=== PATIENT | female | born 1935 | race Caucasian/White ===

== ENCOUNTER 2018-06-16 07:31 | Day surgery (SDC) | payer MEDICARE, BC, OTHER, SELFPAY ==
[2018-06-16] VITALS (7 sets, daily range): BP systolic 104–164; BP diastolic 37–83; PULSE 61–78; RESP 12–17; TEMP 36.2–36.4; O2SAT 94–96; BMI 37.4
--- NOTE | 2018-06-16 | PATH_ITS ---
[facility] Accession Number: [id number] . 01 Material submitted: . POLYP AT 10 CM . 02 Diagnosis: Colon at 10 cm, Polyp: Tubulovillous adenoma, fragmented. Negative for high-grade dysplasia or malignancy. MRV/06/19/2018 . 02 Electronically signed: . Denys Pitts MD, PhD, Pathologist NPI- [id number] . 01 Gross description: . POLYP AT 10 CM: Received in formalin are multiple fragment(s) of pollock, soft tissue measuring 2.0 x 1.3 x 0.5 cm in aggregate submitted entirely in 1 cassette(s) /CKI /CKI . 02 Pathologist provided ICD-10: D12.6 . 02 CPT . 887428 Performed at: 01 [facility] [address] [id number] MD Gustavo Fuentes MD Phone: [phone] Performed at: 02 [facility] [address] [place], [place] [id number] MD Shannon Roberts MD Phone: [phone]
--- NOTE | 2018-06-16 09:24 | PM.PREOP ---
Pre-operative Note Interval Note History & Physical reviewed/Exam performed by Physician: Yes Changes to H&P: No ASA Class (for procedural sedation): II
[2018-06-16] MEDS: METOPROLOL TARTRATE 5 MG/5 ML INJ IV (09:40)
[2018-06-16] MEDS: MIDAZOLAM 5 MG/5 ML VIAL IV (10:06)
[2018-06-16] MEDS: fentaNYL 250 MCG/5 ML INJ IV (10:07)
--- NOTE | 2018-06-16 10:32 | P.OP.ENDO_ITS ---
Operative Date/Time/Diagnoses Date of procedure: 06/16/18 Time of procedure: 10:25 Post-op diagnosis: same (Lesions in the rectum and just inside the anus most likely source of bleeding. Extensive sigmoid diverticulosis with strictures most likely from prior diverticulitis. No active inflammation at this time.) Procedure & Clinicians Study performed: Colonoscopy with hot snare polypectomy Same procedure as scheduled: Yes Indications: Rectal bleeding Surgeon: Haresh Salvador Procedure Notes SCOAP/Timeout: Performed Procedure in detail: The patient was placed in the left lateral decubitus position and underwent IV sedation directed by the surgeon consisting of fentanyl and Versed. Digital exam was unremarkable. The scope was inserted and advanced through the rectum into the sigmoid where I encountered extensive sigmoid diverticulosis with tortuosity and stricture. There did not appear to be any active inflammation. We continued on into the descending, transverse, and ascending colon. Occasional diverticulosis was seen.. The cecum was reached identified by the ileocecal valve . I did not see the entire cecum but saw about half of it. Given the patient's recent colonoscopy that is probably adequate. I simply could not ge further even that we repositioned the patient, added a stiffener, applied pressure. The scope was gradually brought out. Polyps were found at in the rectum at 10 cm and right inside the verge. These w ere soft fleshy masses which I snared. They appear to be completely removed.. The scope was removed and the patient tolerated the procedure well. Scope withdrawal time: 14 min Sedation minutes: 47 Findings: diverticulosis, polyp (Distal rectum and near anal verge.), stricture (Sigmoid) and other findings Specimen(s): other (Polyps) Complications: none Recommendations: Other recommendation (Flexible sigmoidoscopy in 6 months to ensure no return of growth of these lesions.) Follow up: months (Six) Disposition: PACU
== END 2018-06-16 11:13 | disposition home or self-care (01) ==
PROVIDERS: Family Provider Internal Medicine; PCP Internal Medicine; Visit Provider Specialist
PROC: 0DJD8ZZ Inspection of Lower Intestinal Tract, Via Natural or Artificial Opening Endoscopic (ICD-10-PCS; CPT 45378; principal; 2018-06-16 08:45)
DX: K62.5 Hemorrhage of anus and rectum (principal); R01.1 Cardiac murmur, unspecified; N18.9 Chronic kidney disease, unspecified; K57.30 Diverticulosis of large intestine without perforation or abscess without bleeding; D12.6 Benign neoplasm of colon, unspecified
CPT/HCPCS: 45385; 88305; 99152; 99153; J2250; J3010

== ENCOUNTER 2018-11-10 09:23 | Day surgery (SDC) | payer MEDICARE, BC, OTHER, SELFPAY ==
[2018-11-10 09:56] VITALS: BP 174/81; PULSE 78; RESP 16; TEMP 36.6; O2SAT 94; BMI 37.7
--- NOTE | 2018-11-10 10:07 | PM.HP.1 ---
History of Present Illness Date Patient Seen: 11/10/18 Time Patient Seen: 10:08 Chief complaint: [id number] Narrative: The patient is a woman with a rather large polyp that I removed inside the rectum. She is here for a follow-up flexible sigmoidoscopy in order to make sure that it is not grown back and that the lesion was completely removed. Patient History Medical History (Updated 11/10/18 @ 10:08 by Haresh Salvador MD) History of colon polyps (Resolved) Arthritis (Chronic) Gout (Chronic) Heart murmur (Chronic) Renal insufficiency (Chronic) Failed total left knee replacement (Resolved) Surgical History History of left knee replacement (Resolved) Hx of tonsillectomy (Resolved) Status post appendectomy (Resolved) Status post exploratory laparotomy (Resolved) Family History Son Cancer Mother Hypertension Father Hypertension Social History household members: spouse Family & Social History Family History Son Cancer Mother Hypertension Father Hypertension Social History: household members spouse Meds Home Medications Medication Instructions Recorded Confirmed Type ASPIRIN (#ASPIRIN E.C.) 81 mg PO QDAY #0 03/17/11 06/16/18 History fluticasone propionate 1 spray INTRANASAL QDAY #0 03/17/11 06/16/18 History Align 4 mg PO QDAY #0 10/20/12 06/16/18 History acetaminophen 500 mg capsule 500 mg PO Q6H PRN 06/09/18 06/16/18 History atenolol 100 mg tablet 100 mg PO DAILY 06/09/18 06/16/18 History cartilage 40 mg-collagen II-boron tab PO tab 06/09/18 06/09/18 History 5 mg-hyaluronate sod 3.3 mg tablet loratadine 10 mg tablet 10 mg PO DAILY 06/09/18 06/16/18 History omeprazole 20 mg capsule,delayed 20 mg PO DAILY 06/09/18 06/16/18 History release simvastatin 40 mg tablet 40 mg PO BEDTIME 06/09/18 06/16/18 History Allergies Allergy/AdvReac Type Severity Reaction Status Date / Time Sulfa (Sulfonamide Allergy Severe HIVES, Verified 11/10/18 09:52 Antibiotics) BREATHING [SULFA (SULFONAMIDE PROBLEMS ANTIBIOTICS)] allopurinol Allergy Unknown Verified 11/10/18 09:52 codeine [CODEINE] AdvReac Intermediate GENERAL Verified 11/10/18 09:52 MALAISE Review of Systems Review of Systems No breathing problems chest pain heart problems black or bloody bowel movements. Exam Narrative Exam Narrative: Pleasant cooperative patient no apparent distress. Lungs are clear to auscultation. No rales or rhonchi. Heart regular rate and rhythm no murmur gallop. Abdomen is soft nontender without mass. No obvious hernias. Patient is alert and oriented x3. Assessment & Plan Assessment & Plan narrative: The patient for a flexible sigmoidoscopy. I have discussed the procedure with them. Risks of bleeding, perforation which would necessitate major operation, were all discussed. All questions were answered. They wished to proceed.
[2018-11-10] MEDS: SODIUM CHLORIDE 0.9% 1,000 ML 200 ML IV (10:12)
--- NOTE | 2018-11-10 10:54 | PM.PREOP ---
Pre-operative Note Interval Note History & Physical reviewed/Exam performed by Physician: Yes Changes to H&P: No ASA Class (for procedural sedation): II
--- NOTE | 2018-11-10 11:11 | PM.OP.ENDO ---
Operative Date/Time/Diagnoses Date of procedure: 11/10/18 Time of procedure: 11:11 Pre-op diagnosis: History of Large polyp inside the anus Post-op diagnosis: same (No regrowth of polyp) Procedure & Clinicians Study performed: Flexible sigmoidoscopy Same procedure as scheduled: Yes Indications: Patient had a large fleshy polyp removed about 6 months ago. She is brought back to make sure nothing has grown back in that area. She has had no bleeding since that exam. Surgeon: Haresh Salvador Procedure Notes SCOAP/Timeout: Performed Procedure in detail: Patient was placed in left lateral decubitus position. Digital exam was unremarkable. The scope was inserted to approximately 15 cm. Was slowly brought out and the area examined multiple times. The scope was retroflexed in the rectum. There were no lesions seen. The scope was removed and the patient tolerated the procedure well. Scope withdrawal time: Not applicable Sedation minutes: 0 Findings: other findings (No recurrence of polyp or residual lesion) Specimen(s): none sent Complications: none Recommendations: Colonscopy in 5 years Plan for aftercare: Follow-up as needed Follow up: as needed Disposition: same day surgery
[2018-11-10 11:14] VITALS: BP 165/68; PULSE 69; RESP 28; TEMP 36.2; O2SAT 99
[2018-11-10 11:27] VITALS: RESP 24
--- NOTE | 2018-11-10 11:28 | SUR.PHASEII ---
Pt arrived from Endo in phase II. Alert and awake. Denied pain. Juice provided.
== END 2018-11-10 11:30 | disposition home or self-care (01) ==
LOC: ENDO 09:28
PROVIDERS: Family Provider Internal Medicine; PCP Internal Medicine; Visit Provider Specialist
PROC: 0DJD8ZZ Inspection of Lower Intestinal Tract, Via Natural or Artificial Opening Endoscopic (ICD-10-PCS; CPT 45378; principal; 2018-11-10 10:45)
DX: Z86.010 Personal history of colon polyps (principal)
CPT/HCPCS: G0104